=== PATIENT | male | born 2005 | race Caucasian/White ===

== ENCOUNTER 2025-03-31 10:31 | Emergency (ER) | payer BC, OTHER ==
[~2025-03-31] VITALS: Ht 177.8 cm; Wt 74.8 kg
[2025-03-31] MEDS ORDERED: FLUORESCEIN SODIUM OPHTH 1 EA STRIP ONE (10:46)
[2025-03-31] MEDS ORDERED: TETRAcaine 5 ML BOTTLE ONE (10:46)
[2025-03-31] MEDS ORDERED: TOBR5DRO36 EACHEYE (10:58)
[2025-03-31] MEDS: FLUORESCEIN SODIUM OPHTH 1 EA STRIP OP ONE (11:15)
[2025-03-31] MEDS: TETRACAINE HCL 0.5% OPHTALMIC 15 ML BOTTLE OP ONE (11:15)
[2025-03-31] MEDS: TOBRAMYCIN OPHTH 5ML 5 ML BOTTLE EACHEYE SCH (11:25)
[2025-03-31 11:27] VITALS: BP 120/75; TEMP 98.1; O2SAT 100
== END 2025-03-31 11:13 | disposition home or self-care (01) ==
LOC: ER 10:31
DX: H16.013 Central corneal ulcer, bilateral (principal); H53.149 Visual discomfort, unspecified; H57.13 Ocular pain, bilateral